=== PATIENT | female | born 2000 | race Caucasian/White ===

== ENCOUNTER 2022-12-28 14:56 | Emergency (ER) | payer OTHER, SELFPAY ==
[2022-12-28 15:05] VITALS: BP 131/89; PULSE 87; RESP 18; TEMP 37.1; O2SAT 100; BMI 385.0
--- NOTE | 2022-12-28 15:47 | ED.PREGNANC1 ---
HPI - General Stated complaint: ISSUES 6 WEEKS Time Seen by Provider: 12/28/22 15:08 Source: patient and family Mode of arrival: walk-in Limitations: no limitations Related Data Home Medications Medication Instructions Recorded Confirmed ondansetron HCl 4 mg tablet 4 mg PO Q12H PRN nausea and 12/28/22 12/28/22 vomiting vits no.130-ferrous fum 1 tab PO QDAY 12/28/22 12/28/22 27 mg iron-folic acid 800 mcg tablet ( Vitamin) Allergies Allergy/AdvReac Type Severity Reaction Status Date / Time cephalexin [From Keflex] AdvReac Intermediate Verified 12/28/22 15:04 [facility] Social History Smoking status: Current every day smoker Exam Constitutional Vital Signs - 24 hr 12/28/22 15:05 Temperature 98.7 F Pulse Rate [Monitor] 87 Respiratory Rate 18 Blood Pressure [Left Arm] 131/89 H Pulse Oximetry 100 Oxygen Delivery Method Room Air Course Vital Signs Vital signs: Vital Signs Temperature 98.7 F 12/28/22 15:05 Pulse Rate 87 12/28/22 15:05 Respiratory Rate 18 12/28/22 15:05 Blood Pressure 131/89 H 12/28/22 15:05 Pulse Oximetry 100 12/28/22 15:05 Oxygen Delivery Method Room Air 12/28/22 15:05 Temperature 98.7 F 12/28/22 15:05 Pulse Rate 87 12/28/22 15:05 Respiratory Rate 18 12/28/22 15:05 Blood Pressure 131/89 H 12/28/22 15:05 Pulse Oximetry 100 12/28/22 15:05 Oxygen Delivery Method Room Air 12/28/22 15:05 Discharge Plan Discharge Prescriptions / Home Meds: No Action Vitamin 27 mg iron- 800 mcg tablet 1 tab PO QDAY ondansetron HCl 4 mg tablet 4 mg PO Q12H PRN (Reason: nausea and vomiting)
[2022-12-28 15:50] LABS: Bilirubin Urine NEGATIVE (NEGATIVE); Blood Urine NEGATIVE (NEGATIVE); Clarity Urine CLEAR (CLEAR); Color Urine LT. YELLOW (YELLOW); Glucose Urine UA NEGATIVE (NEGATIVE); Ketones Urine NEGATIVE (NEGATIVE); Leukocyte Esterase Urine TRACE (NEGATIVE); Nitrite Urine NEGATIVE (NEGATIVE); Protein Urine NEGATIVE (NEG/TRACE); Specific Gravity Urine 1.025 (1.005-1.025); Urobilinogen Urine 0.2 EU/dL (0.2-1.0)
--- NOTE | 2022-12-28 15:50 | PC.NURSE ---
pt presents to ED because she developed left sided abdominal pain and cramping last night. pt is currently 6 weeks and just wants to make sure the baby is okay. attempted to call OBGYN but was unable to get in anytime soon. no bleeding or abnormal discharge at this time.
[2022-12-28 15:52] LABS: Urine Microscopic Indicated YES
--- NOTE | 2022-12-28 15:56 | ED_ITS ---
HPI - General Chief complaint: OB/Uterine Contractions Stated complaint: ISSUES 6 WEEKS Time Seen by Provider: 12/28/22 15:08 Source: patient and family Mode of arrival: walk-in Limitations: no limitations History of Present Illness HPI Narrative: patient here for evaluation of her 1st . She's getting minor episodes of cramping lasting approximately a minute. She is not doing any bleeding or spotting. She just anxious and wanted make sure the baby was okay. She has not had an ultrasound yet. She does not have any risk factors for ectopic/tubal pregnancies. She does not have any back pain or syncopal episodes. She is currently scheduled to see an human resources professional in [facility] but she may switch over to [place]. She does not any urinary symptoms such as burning frequency urgency dysuria or hematuria no fever. No vomiting or diarrhea Related Data Home Medications Medication Instructions Recorded Confirmed ondansetron HCl 4 mg tablet 4 mg PO Q12H PRN nausea and 12/28/22 12/28/22 vomiting vits no.130-ferrous fum 1 tab PO QDAY 12/28/22 12/28/22 27 mg iron-folic acid 800 mcg tablet ( Vitamin) Allergies Allergy/AdvReac Type Severity Reaction Status Date / Time cephalexin [From Keflex] AdvReac Intermediate Verified 12/28/22 15:04 [facility] Social History Smoking status: Current every day smoker Exam Narrative Exam Narrative: vital signs are stable she appears in no apparent distress but she is anxious. Constitutional skin is warm and dry no evidence of pallor anemia or shock. Respiratory no respirations distress cough or congestion. Abdomen shows no tenderness guarding or masses rebound or rigidity. Extremities show no edema swelling or cellulitis. Constitutional Vital Signs - 24 hr 12/28/22 15:05 Temperature 98.7 F Pulse Rate [Monitor] 87 Respiratory Rate 18 Blood Pressure [Left Arm] 131/89 H Pulse Oximetry 100 Oxygen Delivery Method Room Air Course Vital Signs Vital signs: Vital Signs Temperature 98.7 F 12/28/22 15:05 Pulse Rate 87 12/28/22 15:05 Respiratory Rate 18 12/28/22 15:05 Blood Pressure 131/89 H 12/28/22 15:05 Pulse Oximetry 100 12/28/22 15:05 Oxygen Delivery Method Room Air 12/28/22 15:05 Temperature 98.7 F 12/28/22 15:05 Pulse Rate 87 12/28/22 15:05 Respiratory Rate 18 12/28/22 15:05 Blood Pressure 131/89 H 12/28/22 15:05 Pulse Oximetry 100 12/28/22 15:05 Oxygen Delivery Method Room Air 12/28/22 15:05 MDM - OB/Uterine Contractions MDM Narrative Medical decision making narrative: patient's quantitative hCG is substantially elevated however her transvaginal ultrasound does not show heart tones despite the presence of a gestational sac. There is nothing in the adnexa to suggest ectopic pregnancies. She at this time should be advised to repeat her quantitative hCG and follow-up with her human resources professional in forty-eight hours. Lab Data Labs: Lab Results 12/28/22 12/28/22 12/28/22 Range/Units 15:45 15:49 15:53 WBC 10.6 (4.0-11.0) 10^3/uL RBC 4.38 (4.20-5.40) 10^6/uL Hgb 12.8 (12.0-16.0) g/dL Hct 36.8 (36.0-48.0) % MCV 84.0 (81.0-99.0) fL MCH 29.2 (26.7-34.0) pg MCHC 34.8 (29.9-35.2) g/dL RDW 11.6 (11.0-15.0) % Plt Count 233 (150-450) 10^3/uL MPV 9.7 (9.5-13.5) fL Neut % (Auto) 72.6 (43.0-75.0) % Lymph % (Auto) 17.9 L (20.5-60.0) % Butler % (Auto) 6.2 (1.7-12.0) % Eos % (Auto) 1.8 (0.9-7.0) % Baso % (Auto) 0.8 (0.2-2.0) % Neut # (Auto) 7.7 H (1.4-6.5) 10^3/uL Lymph # (Auto) 1.9 (1.2-3.8) 10^3/uL Butler # (Auto) 0.7 (0.3-0.8) 10^3/uL Eos # (Auto) 0.2 (0.0-0.7) 10^3/uL Baso # (Auto) 0.1 (0.0-0.1) 10^3/uL Abs Immat Gran (auto) 0.07 H (0.00-0.03) 10^3/uL Imm/Tot Granulo (auto) 0.7 H (0.0-0.5) % HCG, Quant 70260 mIU/mL Urine Color Lt. yellow (YELLOW) Urine Clarity Clear (CLEAR) Urine pH 7.0 (5.0-9.0) Ur Specific [place] 1.025 (1.005-1.025) Urine Protein Negative (NEG/TRACE) mg/dL Urine Glucose (UA) Negative (NEGATIVE) mg/dL Urine Ketones Negative (NEGATIVE) mg/dL Urine Occult Blood Negative (NEGATIVE) Urine Nitrite Negative (NEGATIVE) Urine Bilirubin Negative (NEGATIVE) Urine Urobilinogen 0.2 (0.2-1.0) EU/dL Ur Leukocyte Esterase Trace A (NEGATIVE) Urine RBC 0-2 (0-2) #/HPF Urine WBC 2-5 A (NONE SEEN) #/HPF Ur Squamous Epith Cells Few A (NONE/RARE) #/LPF Urine Crystals None seen (None Seen) #/HPF Urine Bacteria Small A (NONE SEEN) #/HPF Urine Casts None seen (NONE SEEN) #/LPF Urine Mucus None seen (NONE SEEN) Ur Culture Indicated? Yes Blood Type O Positive Discharge Plan Discharge Chief Complaint: OB/Uterine Contractions Clinical Impression: Threatened Patient Disposition: Home, Self-Care Time of Disposition Decision: 17:59 Prescriptions / Home Meds: No Action Vitamin 27 mg iron- 800 mcg tablet 1 tab PO QDAY ondansetron HCl 4 mg tablet 4 mg PO Q12H PRN (Reason: nausea and vomiting) Instructions: Threatened Miscarriage (ED) Stand Alone Forms: Portal Instructions Referrals: Physician,Non-Staff, MD [Primary Care Provider] - 1 week
[2022-12-28 15:59] LABS: Basophils Absolute Auto 0.1 10^3/uL (0.0-0.1); Basophils Percent Auto 0.8 % (0.2-2.0); Eosinophils Absolute Auto 0.2 10^3/uL (0.0-0.7); Eosinophils Percent Auto 1.8 % (0.9-7.0); Hematocrit 36.8 % (36.0-48.0); Hemoglobin 12.8 g/dL (12.0-16.0); Immature Granulocytes Abs Auto 0.07 10^3/uL (0.00-0.03); Immature Granulocytes Pct Auto 0.7 % (0.0-0.5); Lymphocytes Absolute Auto 1.9 10^3/uL (1.2-3.8); Lymphocytes Percent Auto 17.9 % (20.5-60.0); Mean Corpuscular HGB Conc 34.8 g/dL (29.9-35.2); Mean Corpuscular Hemoglobin 29.2 pg (26.7-34.0); Mean Platelet Volume 9.7 fL (9.5-13.5); Monocytes Absolute Auto 0.7 10^3/uL (0.3-0.8); Monocytes Percent Auto 6.2 % (1.7-12.0); Neutrophils Absolute Auto 7.7 10^3/uL (1.4-6.5); Neutrophils Percent Auto 72.6 % (43.0-75.0); Platelet Count 233 10^3/uL (150-450); Red Blood Count 4.38 10^6/uL (4.20-5.40); Red Cell Distribution Width 11.6 % (11.0-15.0); White Blood Count 10.6 10^3/uL (4.0-11.0)
[2022-12-28 16:05] LABS: Bacteria Urine SMALL #/HPF (NONE SEEN); Cast Seen? NONE SEEN #/LPF (NONE SEEN); Crystals Seen? None Seen #/HPF (None Seen); Mucus Urine NONE SEEN (NONE SEEN); RBC Urine 0-2 #/HPF (0-2); Squamous Epithelial Cell Urine FEW #/LPF (NONE/RARE)
[2022-12-28 16:06] LABS: Urine Culture Indicated YES
--- NOTE | 2022-12-28 16:06 | US_ITS ---
[address] [address] Patient Name: RADHA FULLER MRN: [id number] date: 2000 Sex: F Assigned Patient Location: ED.MAIN Current Patient Location: .MAIN Accession/Order Number: [id number] Exam Date: 12/28/2022 16:05 Report Date: 12/28/2022 17:42 At the request of: AGUILA GAXIOAL Procedure: US OB transvaginal EXAMINATION: US OB transvaginal HISTORY: abdominal pain in TECHNIQUE: Grayscale and color Doppler sonographic evaluation of the uterus and adnexa was performed utilizing a transvaginal approach only. COMPARISON: None. FINDINGS: Uterus: There is a 7 mm anechoic structure adjacent to the gestational sac which may represent an involuting second gestational sac. Size: Normal Orientation:Anteverted Intrauterine Gestational Sac: Present Yolk Sac: Present Pole: Present. [place] Central-rump length measures 1.4 cm corresponding to a 7 week and 5 day gestation. Cardiac Activity: Not visualized Subchorionic hemorrhage: none. Cervix: Closed Right adnexa:Normal Left adnexa:Normal Free fluid:None . IMPRESSION: 1. Findings suggestive of embryonic demise. No heart tones visualized in a 7 week 5 day gestation. An additional anechoic structure within the uterus may represent a involuting second gestational sac. Electronically authenticated by: ADAM BENTON Date: 12/28/2022 17:42
--- NOTE | 2022-12-28 18:38 | PC.NURSE ---
left without receiving discharge instructions
== END 2022-12-28 18:37 | disposition home or self-care (01) ==
PROVIDERS: Physician Assistant; Emergency Provider Emergency Medicine Emergency Medical Services
DX: O20.0 Threatened abortion (principal); O99.331 Smoking (tobacco) complicating pregnancy, first trimester; F17.210 Nicotine dependence, cigarettes, uncomplicated; Z3A.01 Less than 8 weeks gestation of pregnancy
CPT/HCPCS: 36415; 76817; 81003; 81015; 84702; 85025; 86900; 86901; 87086; 99285